=== PATIENT | female | born 1945 | race Caucasian/White ===

== ENCOUNTER → 2017-03-25 | Outpatient (CLI) | payer OTHER, BC ==
[~2017-03-25] VITALS: Ht 149.9 cm; Wt 52.0 kg
[~2017-03-25] MED LIST: AMLODIPINE BESY10 MG PO; ATIVAN0.5 MG PO; ATORVASTATIN CA80 MG PO; BENTYL10 MG PO; BENTYL20 MG PO; CIPRO500 MG PO; CYMBALTA60 MG PO; ENDOCET 10-3251 EACH PO; FLAGYL500 MG PO; LOPERAMIDE2 M1 PO; LORAZEPAM1 MG PO; LYRICA75 MG PO; NORVASC10 MG PO; OXYCODONE-APAP1 EACH PO; PENNSAID2 GM TP; PREVACID30 MG PO; PROTONIX40 MG PO; SINGULAIR10 MG PO; TOPROL XL25 MG PO; TRAZODONE HCL100 MG PO; VIIBRYD40 MG PO; VITAMIN D31000 UNIT PO; ZOFRAN4 MG PO
[2017-03-25 10:51] VITALS: BP 127/75
== END | disposition home or self-care (01) ==
LOC: IVINF 10:27
DX: M81.0 Age-related osteoporosis without current pathological fracture (principal)
CPT/HCPCS: 96365; J3489

== ENCOUNTER 2017-06-23 17:53 | Emergency (ER) | payer OTHER ==
[~2017-06-23] VITALS: Ht 147.3 cm; Wt 51.2 kg
[2017-06-23 18:34] LABS: APPEARANCE CLEAR ((CLEAR)); BILIRUBIN NEGATIVE; BLOOD NEGATIVE; COLOR STRAW ((YELLOW)); GLUCOSE (STRIP) NEGATIVE; KETONES NEGATIVE; LEUKOCYTES NEGATIVE; NITRITE NEGATIVE; PROTEIN (STRIP) NEGATIVE; SPECIFIC GRAVITY 1.006 (1.000-1.030); UROBILINOGEN 0.2 MG/DL (0.2-1.0)
[2017-06-23 18:35] LABS: BASOPHIL (%) 0.6 % (0-1); BASOPHIL COUNT 0.1 K/uL (0-0.1); EOSINOPHIL (%) 5.9 % (0-5); EOSINOPHIL COUNT 0.5 K/uL (0-0.3); HEMATOCRIT 37.5 % (36.0-46.0); HEMOGLOBIN 12.1 G/DL (11.9-15.5); IMMATURE GRANULOCYTE (%) 0.3 % (0.0-0.7); LYMPHOCYTE (%) 23.2 % (15-42); LYMPHOCYTE COUNT 1.8 K/uL (1.0-2.8); MCH 28.9 PG (29.0-34.0); MCHC 32.3 G/DL (30.0-36.0); MCV 89.5 FL (83-99); MONOCYTE (%) 8.1 % (3-12); MONOCYTE COUNT 0.6 K/uL (0-0.8); NEUTROPHIL (%) 61.9 % (45-76); NEUTROPHIL COUNT 4.9 K/uL (1.8-6.4); PLATELET COUNT 352 K/uL (156-360); RBC DIS.WIDTH-CV 15.5 % (11.8-14.6); RBC DIS.WIDTH-SD 51.6 % (39-53); RED BLOOD COUNT 4.19 M/uL (3.80-5.20); WHITE BLOOD COUNT 7.9 K/uL (4.1-10.2)
[2017-06-23 18:46] LABS: CHLORIDE 102 mEq/L (99-109); POTASSIUM 4.2 mEq/L (3.7-5.4); SODIUM 138 mEq/L (136-147)
[2017-06-23 18:47] LABS: AMPHETAMINE NEGATIVE (500 ng/mL); BARBITURATES NEGATIVE (200 ng/mL); BENZODIAZEPINES PRESUMPTIVE POSITIVE (150 ng/mL); BUPRENORPHINE NEGATIVE (10 ng/mL); COCAINE NEGATIVE (150 ng/mL); METHADONE NEGATIVE (200 ng/mL); METHAMPHETAMINE NEGATIVE (500 ng/mL); OPIATES (MORPHINE) NEGATIVE (100 ng/mL); OXYCODONE PRESUMPTIVE POSITIVE (100 ng/mL); PHENCYCLIDINE NEGATIVE (25 ng/mL); PROPOXYPHENE NEGATIVE (300 ng/mL); THC CANNABINOIDS NEGATIVE (50 ng/mL); TRICYCLIC ANTIDEPRESSANTS NEGATIVE (300 ng/mL)
[2017-06-23 18:48] LABS: GLUCOSE 103 mg/dL (70-99)
[2017-06-23 18:51] LABS: SERUM ETHYL ALCOHOL < 10 mg/dL
[2017-06-23 18:52] LABS: CREATININE 0.7 mg/dL (0.6-1.3); GFR ESTIMATE (CALCULATED) > 59 mL/min/
[2017-06-23 18:53] LABS: UREA NITROGEN (BUN) 9 mg/dL (9-23)
[2017-06-23 19:07] LABS: BENZODIAZEPINES, URINE SCREEN Negative (200 ng/mL)
[2017-06-23 20:06] VITALS: BP 195/100
== END 2017-06-23 20:12 | disposition home or self-care (01) ==
LOC: EME 17:53
PROVIDERS: Emergency Medicine
DX: F43.21 Adjustment disorder with depressed mood (principal); F41.9 Anxiety disorder, unspecified; F32.9 Major depressive disorder, single episode, unspecified; E78.5 Hyperlipidemia, unspecified; K21.9 Gastro-esophageal reflux disease without esophagitis; I10 Essential (primary) hypertension; G47.00 Insomnia, unspecified; Z88.0 Allergy status to penicillin; Z88.2 Allergy status to sulfonamides
CPT/HCPCS: 80048; 81003; 84999; 85025; 90839; 99281; 99285; G0480